=== PATIENT | male | born 1950 | race Caucasian/White ===

== ENCOUNTER 2016-10-05 09:20 | Emergency (ER) | payer SELFPAY ==
[~2016-10-05] VITALS: Ht 162.6 cm; Wt 90.7 kg
[~2016-10-05 09:20] MED LIST: PRINIVIL20 MG PO
[2016-10-05] MEDS ORDERED: HYDROCHLOROTHIA25 MG PO (11:36)
== END 2016-10-05 11:24 | disposition short-term general hospital (02) ==
LOC: ER 09:20
DX: J44.1 Chronic obstructive pulmonary disease with (acute) exacerbation (principal); J18.9 Pneumonia, unspecified organism; I10 Essential (primary) hypertension
CPT/HCPCS: A9150

== ENCOUNTER 2016-11-21 07:30 | Day surgery (SDC) | payer OTHER, SELFPAY ==
[~2016-11-21] VITALS: Ht 162.6 cm; Wt 87.5 kg
[~2016-11-21 07:30] MED LIST changes: +HYDROCHLOROTHIA25 MG PO
== END 2016-11-21 10:44 | disposition short-term general hospital (02) ==
LOC: SURGOP 07:30
PROC: 0DJD8ZZ Inspection of Lower Intestinal Tract, Via Natural or Artificial Opening Endoscopic (ICD-10-PCS; principal; 2016-11-21)
DX: Z12.11 Encounter for screening for malignant neoplasm of colon (principal); K57.30 Diverticulosis of large intestine without perforation or abscess without bleeding; I10 Essential (primary) hypertension; Z87.01 Personal history of pneumonia (recurrent); Z87.891 Personal history of nicotine dependence; Z88.4 Allergy status to anesthetic agent
CPT/HCPCS: J2175; J2250